=== PATIENT | male | born 1940 | race Caucasian/White ===

== ENCOUNTER 2024-03-13 15:21 | Outpatient (AMB) | payer MEDICARE, SELFPAY ==
--- NOTE | 2024-03-13 15:31 | HO.NEPHOV_ITS ---
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 He has hypertension for a long time and has been on amlodipine and benazepril which has been keeping his blood pressure at goal. He has been taking nonsteroidal anti-inflammatories on a regular basis. He is known to have diastolic dysfunction with mild to moderate aortic stenosis. He has GERD and has been on PPI for a long time. He has osteoarthritis. He has history of bladder cancer and the last diagnostic cystoscopy by Dr. Reed has been negative he also has mild intermittent essential tremor. He has hearing deficits has he gotten older. He denies any microscopic hematuria now. There is no family history of any Alport syndrome. He denies any chest pain, shortness of breath, paroxysmal nocturnal dyspnea, orthopnea, dysuria, fever, suprapubic pain, flank pain, nephrolithiasis, peripheral arterial disease, carotid stenosis, CVA, CAD, CHF. He is active and swims and play golf regularly. His serum creatinine has been around 1.2. He denies any nausea, vomiting, diarrhea. He was accompanied by his during this office visit. [facility] Medical History (Updated 03/14/24 @ 13:10 by Tyrone Gibson MD) Bladder CA in situ Hyperlipidemia GERD (gastroesophageal reflux disease) Spinal stenosis Osteoarthritis JUNG (obstructive sleep apnea) Hypertension Surgical History (Updated 03/08/24 @ 13:52 by Shana Pedraza MA) History of cholecystectomy History of back surgery History of appendectomy History of tonsillectomy H/O colonoscopy History of laminectomy History of total right knee replacement Family History (Updated 03/13/24 @ 15:37 by Shana Pedraza MA) Father Diabetes Heart disease Mother Lung cancer Daughter Cancer Social History (Updated 03/13/24 @ 15:37 by Shana Pedraza MA) Alcohol intake: current Patient Tobacco Use Status: Former Tobacco user Use of substances other than those prescribed or required for medical reasons: No Review of Systems Const All systems reviewed & are unremarkable except as noted in HPI and below Physical Exam Vital Signs: Last Vital Signs Pulse 67 03/13/24 15:32 BP 130/70 03/13/24 15:32 Pulse Ox 95 03/13/24 15:32 Oxygen Delivery Method Room Air 03/13/24 15:32 BMI result Body Mass Index 28.4 Const General: comfortable and no acute distress Orientation/consciousness: patient oriented x3 HEENT Head: Yes normocephalic Mouth: Normal oral and palatal mucosa present Eyes EOM: EOMs intact bilaterally Neck Neck: Yes supple Resp Auscultation: clear to auscultation bilaterally Cardio Jugular venous distension: no JVD Rate: regular rate Heart sounds: Murmur heart sound present GI Palpation (GI): Soft to palpation Auscultation: normal bowel sounds General: Yes no CVA tenderness Back/Spine/Pelvis Back: no CVA tenderness Skin General skin exam: no rashes or lesions noted Neuro General: patient oriented x3 and moves all extremities Extrem General: Yes no pedal edema Results Reviewed Nephrology Results: No Data to Display Assessment & Plan Assessment & Plan (1) Proteinuria: Code(s): R80.9 - Proteinuria, unspecified Category: Medical Qualifiers: Proteinuria type: other Qualified Code(s): R80.8 - Other proteinuria (2) Hypertension: Code(s): I10 - Essential (primary) hypertension Category: Medical Qualifiers: Hypertension type: primary hypertension Qualified Code(s): I10 - Essential (primary) hypertension (3) CKD (chronic kidney disease) stage 2, GFR 60-89 ml/min: Code(s): N18.2 - Chronic kidney disease, stage 2 (mild) Category: Medical Plan Dr Ferris has mild CKD and mild proteinuria on a backdrop of longstanding hypertension. His blood pressure is under control on amlodipine and benazepril. He is known to have bladder cancer which has been closely followed up by Dr. Reed. He has no family history of microscopic hematuria or Alport syndrome. His serum creatinine has been stable. He has not known to have any hypercalcemia. He takes nonsteroidal anti-inflammatories regularly. I asked him not to do it regularly, given his age and being on GHAZALA inhibitor. I ordered a 24 hour urine collection for protein. If he has proteinuria we can discontinue his amlodipine and increase his benazepril which will maintain his blood pressure at goal and help with his proteinuria. If he has significant proteinuria he warrants were investigations which I shall be happy to order and organize. In the interim he wants to follow-up closely with his primary care and will see me as needed basis. I did not make any medication changes today. I answered all his and his 's questions. Orders: Orders Protein, 24 Hr Urine Group 03/13/24 R80.9 - Proteinuria, unspecified Coding Level of Care Code New Pt Level 4 (61399) Diagnoses Other proteinuria R80.8 Proteinuria type: other Primary hypertension I10 Hypertension type: primary hypertension CKD (chronic kidney disease) stage 2, GFR 60-89 ml/min N18.2
[2024-03-13 15:32] VITALS: BP 130/70; PULSE 67; O2SAT 95; BMI 28.4
== END 2024-03-13 16:38 | disposition home or self-care (01) ==
PROVIDERS: PCP Internal Medicine; Visit Provider Internal Medicine Nephrology
DX: R80.8 Other proteinuria (principal); I12.9 Hypertensive chronic kidney disease with stage 1 through stage 4 chronic kidney disease, or unspecified chronic kidney disease; N18.2 Chronic kidney disease, stage 2 (mild)
CPT/HCPCS: 99204

== ENCOUNTER → 2024-03-13 15:21 | Outpatient (BNVA) | payer MEDICARE, SELFPAY | PROVIDERS: PCP Internal Medicine; Visit Provider Internal Medicine Nephrology | DX: R80.9 Proteinuria, unspecified (principal); I12.9 Hypertensive chronic kidney disease with stage 1 through stage 4 chronic kidney disease, or unspecified chronic kidney disease; N18.2 Chronic kidney disease, stage 2 (mild); Z79.899 Other long term (current) drug therapy | CPT/HCPCS: 99202 ==

== ENCOUNTER 2025-03-26 10:44 | Outpatient (AMB) | payer MEDICARE, SELFPAY ==
--- NOTE | 2025-03-26 11:30 | HO.NEPHOV_ITS ---
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 He has hypertension for a long time and has been on amlodipine and benazepril which has been keeping his blood pressure at goal. He has been taking nonsteroidal anti-inflammatories on a regular basis which he discontinued recently after his serum creatinine has gone up. He is known to have diastolic dysfunction with mild to moderate aortic stenosis. He has GERD and has been on PPI for a long time. He has osteoarthritis. He has history of bladder cancer and the last diagnostic cystoscopy by Dr. Reed has been negative he also has mild intermittent essential tremor. He has hearing deficits has he gotten older. He denies any microscopic hematuria now. There is no family history of any Alport syndrome. He denies any chest pain, shortness of breath, paroxysmal nocturnal dyspnea, orthopnea, dysuria, fever, suprapubic pain, flank pain, nephrolithiasis, peripheral arterial disease, carotid stenosis, CVA, CAD, CHF. He is active and swims and play golf regularly. His serum creatinine had been around 1.2 which has gone up to 1.35. He denies any nausea, vomiting, diarrhea. He was accompanied by his during this office visit. [facility] Medical History (Updated 03/14/24 @ 13:10 by Tyrone Gibson MD) Bladder CA in situ Hyperlipidemia GERD (gastroesophageal reflux disease) Spinal stenosis Osteoarthritis JUNG (obstructive sleep apnea) Hypertension Surgical History History of cholecystectomy History of back surgery History of appendectomy History of tonsillectomy H/O colonoscopy History of laminectomy History of total right knee replacement Family History Father Diabetes Heart disease Mother Lung cancer Daughter Cancer Social History (Reviewed 03/26/25 @ 11:33 by ELEANOR Chin Alcohol intake: current Patient Tobacco Use Status: Former Tobacco user Review of Systems Const All systems reviewed & are unremarkable except as noted in HPI and below Physical Exam Vital Signs: Last Vital Signs BP 102/62 03/26/25 11:31 Pulse Ox 98 03/26/25 11:31 Oxygen Delivery Method Room Air 03/26/25 11:31 BMI result Body Mass Index 27.4 Const Other: Hearing aid present General: comfortable and no acute distress Orientation/consciousness: patient oriented x3 HEENT Head: Yes normocephalic Mouth: Normal oral and palatal mucosa present Eyes EOM: EOMs intact bilaterally Neck Neck: Yes supple Resp Auscultation: clear to auscultation bilaterally Cardio Jugular venous distension: no JVD Rate: regular rate GI Palpation (GI): Soft to palpation Auscultation: normal bowel sounds General: Yes no CVA tenderness Back/Spine/Pelvis Back: no CVA tenderness Skin General skin exam: no rashes or lesions noted Neuro General: patient oriented x3 and moves all extremities Extrem General: Yes no pedal edema Results Reviewed Nephrology Results: No Data to Display Assessment & Plan Assessment & Plan (1) CKD (chronic kidney disease) stage 2, GFR 60-89 ml/min: Code(s): N18.2 - Chronic kidney disease, stage 2 (mild) Category: Medical (2) Hypertension: Code(s): I10 - Essential (primary) hypertension Category: Medical Qualifiers: Hypertension type: primary hypertension Qualified Code(s): I10 - Essential (primary) hypertension (3) Proteinuria: Code(s): R80.9 - Proteinuria, unspecified Category: Medical Qualifiers: Proteinuria type: other Qualified Code(s): R80.8 - Other proteinuria Plan Dr Ferris has mild CKD and mild proteinuria on a backdrop of longstanding hypertension. His blood pressure is under control on amlodipine and benazepril. He is known to have bladder cancer which has been closely followed up by Dr. Reed. He has no family history of microscopic hematuria or Alport syndrome. His serum creatinine has gone up and he has stopped his NSAID. He has not known to have any hypercalcemia. I ordered follow up labs in 2 months and when he returns from [place]. If hsi serum creatnine does not settle down , he will need a renal USS. I did not make any medication changes today. I answered all his and his 's questions. Orders: Orders Creatinine 8 Months I10 - Essential (primary) hypertension, N18.2 - Chronic kidney disease, stage 2 (mild), R80.8 - Other proteinuria Creatinine 2 Months I10 - Essential (primary) hypertension, N18.2 - Chronic kidney disease, stage 2 (mild) Blood Urea Nitrogen 2 Months I10 - Essential (primary) hypertension, N18.2 - Chronic kidney disease, stage 2 (mild) Electrolytes 2 Months I10 - Essential (primary) hypertension, N18.2 - Chronic kidney disease, stage 2 (mild) Electrolytes 8 Months I10 - Essential (primary) hypertension, N18.2 - Chronic kidney disease, stage 2 (mild), R80.8 - Other proteinuria Blood Urea Nitrogen 8 Months I10 - Essential (primary) hypertension, N18.2 - Chronic kidney disease, stage 2 (mild), R80.8 - Other proteinuria Coding Level of Care Code Est Pt Level 4 (49779) Diagnoses CKD (chronic kidney disease) stage 2, GFR 60-89 ml/min N18.2 Primary hypertension I10 Hypertension type: primary hypertension Other proteinuria R80.8 Proteinuria type: other
[2025-03-26 11:31] VITALS: BP 102/62; O2SAT 98; BMI 27.4
--- OUTSIDE RECORDS SUMMARY | 2025-03-26 12:13 | XMS_ITS | Data Portability ---
Author Organization [place] [facility] [address] [place] [address] Care Team Providers Care Travel Freight And Passenger Agent Name Role Phone RUDY LLAMAS Internal Medicine ALVARADO BOUCHER Primary Care Provider ALEXIA HARP Store Operations Specialist [phone] ENE RICKS Store Operations Specialist Assessment No assessment recorded. Plan of Treatment Reminders Order Date Submit Date Provider Last Modified By Organization Details Last Modified Time Details Appointments None record ed. Lab rapid flu (A+B) 2023 024 SUE In-Office Order, Internal Use Only DO Not Attach Compendium DO Not Attach Compendium, Do Not Delete/merge, [id number] 13:58:50 unlist ed lab - derm-i d compre hensiv e 2022 [facility], [address] [facility], [facility] [address], [place], [address], 3 16:12:02 Referral gastro entero logist referr al 2022 023 SUE Og MD ([facility]), [address] [facility], [facility] [address], [address], 3 09:20:17 Procedures None record ed. Surgeries None record ed. Imaging XR, chest - decrea sed vesicu lar murmur in right bse wuith possib le increa se fremit us 01/31/ 2024 01/31/2 024 yblancosantos DO Not Use [facility] Radiology DO Not Use, [address], [place], [address], 4 07:50:59 Medication Orders Tamifl u 75 mg capsul e 2023 024 SUE [id number], [address], [place], [address], 4 16:51:43 amoxic illin 875 mg-pot assium clavul anate 125 mg tablet 2022 023 [id number], [address], [place], [address], 4 15:44:08 hydroc ortiso ne 2.5 % topica l cream with perine al applic ator 2022 023 [id number], [address], [place], [address], 4 15:44:30 Patient TargetsNo targets recorded. Patient Instructions Encounter Date Encounter Id Patient Instructions Last Modified By Organization Details Last Modified Time 12/17/2021 [id number] sleep apnea: car e instructions [email or web address] Not available 12/17/2021 10:34:50 high blood pressure: care instructions mjimenezrodrigue Not available 12/17/2021 10:34:50 learning about high blood pressure mjimenezrodrigue Not available 12/17/2021 10:34:50 lightheadedness or faintness: care instructions mjimenezrodrigue Not available 12/17/2021 10:34:50 high cholesterol : care instructions mjimenezrodrigue Not available 12/17/2021 10:34:50 benign prostatic hyperplasia: care instructions mjimenezrodrigue Not available 12/17/2021 10:34:50 11/09/2023 [id number] upper respirator y infection (cold): care instructions mjimenezrodrigue Not available 11/09/2023 16:43:56 high blood pressure: care instructions mjimenezrodrigue Not available 11/09/2023 16:43:56 learning about high blood pressure mjimenezrodrigue Not available 11/09/2023 16:43:56 high cholesterol : care instructions mjimenezrodrigue Not available 11/09/2023 16:43:56 benign prostatic hyperplasia: care instructions mjimenezrodrigue Not available 11/09/2023 16:43:56 Reason for Referral Store Operations Specialist Referral for Hemorrhoids Referring Physician: Alvarado Boucher, Family Medicine, Encounter Date: 11/05/2022 Results Created Date Observation Date Name Description Value Unit Range Abnormal Flag Note LastModifiedBy Organization Detail LastModifiedTime 11/10/19 24 11/10/2023 rapid flu (A+B) V Block Saw Operator GIOVANA FLORES Not Available In-Office Order Internal Use Only DO Not Attach Compendium DO Not Attach Compendium, Do Not Delete/merge, [id number] 11/09/2023 16:41:20 11/10/19 24 11/10/2023 rapid flu (A+B) Test Strip Lot Number [id number] Not Available In-Office Order Internal Use Only DO Not Attach Compendium DO Not Attach Compendium, Do Not Delete/merge, [id number] 11/09/2023 16:41:20 11/10/19 24 11/10/2023 rapid flu (A+B) Test Strip Expiration Date 2024 Not Available In-Office Order Internal Use Only DO Not Attach Compendium DO Not Attach Compendium, Do Not Delete/merge, [id number] 11/09/2023 16:41:20 11/10/19 24 11/10/2023 rapid flu (A+B) Procedural Control Valid yes Not Available In-Off ice Order Internal Use Only DO Not Attach Compendium DO Not Attach Compendium, Do Not Delete/merge, [id number] 11/09/2023 16:41:20 11/10/19 24 11/10/2023 rapid flu (A+B) Flu A positi ve Not Available In-Office Order Internal Use Only DO Not Attach Compendium DO Not Attach Compendium, Do Not Delete/merge, [id number] 11/09/2023 16:41:20 11/10/19 24 11/10/2023 rapid flu (A+B) Flu B negati ve Not Available In-Office Order Internal Use Only DO Not Attach Compendium DO Not Attach Compendium, Do Not Delete/merge, [id number] 11/09/2023 16:41:20 Result Notes None recorded. Problems Name Problem SNOMED Code Status Onset Date Resolution Date Notes Provider Name and Address Organization Details Recorded Time Near syncope 279171839 Active 2021 RUDY NAVARRO MD [address] [place] [address], [address] , [facility] [place] 2 10:34:29 Cardiac arrhythmia 639678174 Active 2021 RUDY NAVARRO MD [address] [place] [address], [address] , [facility]14 [place] 2 10:34:30 Obstructive sleep apnea syndrome 85736019 Active 2021 RUDY NAVARRO MD [address] [place] [address], [address] , [facility]14 [place] 2 10:34:31 Essential hypertension 95931535 Active 2021 RUDY NAVARRO MD [address] [place] [address], [address] , [facility]14 [place] 2 10:34:33 Hyperlipidemi a 34758298 Active 2021 RUDY NAVARRO MD [address] [place] [address], [address] , [facility]14 [place] 2 10:34:34 History of malignant neoplasm of bladder 486060210 Active 2021 RUDY NAVARRO MD [address] [place] [address], [address] , [facility] [place] 2 10:34:35 History of malignant neoplasm of skin 513564404 Active 2021 RUDY NAVARRO MD [address] [place] [address], [address] , [address] 2 10:34:35 Benign prostatic hyperplasia 622778777 Active 2021 RUDY NAVARRO MD [address] [place] [address], [address] [place] [address] , [address] 2 10:34:36 Screening for malignant neoplasm of colon Active 2021 Not Available [facility] 3 09:49:04 Upper respiratory infection 49773093 Active 2023 RUDY NAVARRO MD [address] [place] [address], [address] , [address] 4 16:40:55 Influenza caused by Influenza A virus 849892556 Active 2023 RUDY NAVARRO MD [address] [place] [address], [address] , [address] 4 16:51:21 Notes:Some problems listed i n Document: #[id number] could not be added to this patient's chart. Please review this document and add these problems to the patient's chart manually as needed. Problem Notes Documentation Provider Name and Address Organization Details Recorded Time Store Operations Specialist Consult Note : [facility] [facility] ? [address], [facility] [id number], Carl (id #[id number], : 1940) [facility] ? [place] [address] [place] [address] Encounter Summary - Progress Note Date Printed: 11/09/2022 Documents sent via fax will include the followingmessage: This fax may contain sensitive and confidential personal health information that is being sent for the sole use of the intended recipient. Unintended recipients are directed to securely destroy any materials received. You are hereby notified that the unauthorized disclosure or other unlawful use of this fax or any personal health information is prohibited. To the extent patient information contained in this fax is subject to 42 CFR Part 2, this regulation prohibits unauthorized disclosure of these records. If you received this fax in error, please visit [email or web address] to notify the sender and confirm that the information will be destroyed. If you do not have internet access, please call to notify the sender and confirm that the information will be destroyed. Thank you for your attention and cooperation. [ID:[id number]] Patient Barrington, (82yo, M) #[id number] 1940 Patient Demographics: Address [address] [id number] Encounter Notes: Encounter Reason/Date Hemorrhoid Banding - Visit 1 11/09/2022 - 09:15AM - [facility] History of Present IllnessPatient presents for first hemorrhoid banding. Review of Systems Patient reports no abdominal pain, no vomiting, normal appetite, no diarrhea, not vomiting blood, no malaise, no exposure to hepatitis, no blood transfusion, and no weight gain;1st hemorrhoid banding today.. He reports no fever, no night sweats, no significant weight gain, no significant weight loss, and no exercise intolerance. He reports no dry eyes, no irritation, and no vision change. He reports no difficulty hearing and no ear pain. He reports no frequent nosebleeds and no nose/sinus problems. He reports no sore throat, no bleeding gums, no snoring, no dry mouth, no mouth ulcers, no oral abnormalities, and no teeth problems. He reports no chest pain, no arm pain on exertion, no shortness of breath when walking, no shortness of breath when lying down, no palpitations, and no known heart murmur. He reports no cough, no wheezing, no shortness of breath, and no coughing up blood. He reports no enemas, no laxatives, no change in stool consistency, and no bloating. He reports no blood, no mucous, no pain/cramps, no antibiotics, no urgency, and no travel. He reports no belching, none per rectum, and relief with passage. He reports no itching, no burning, and no suppositories. He reports none on toilet tissue, does not discolor water in toilet, and not associated with rectal pain. He reports no incontinence. He reports no change in bowel habits. He reports no incontinence, no difficulty urinating, no hematuria, and no increased frequency. He reports no muscle aches, no muscle weakness, no arthralgias/joint pain, no back pain, and no swelling in the extremities. He reports no abnormal mole, no jaundice, and no rashes. He reports no loss of consciousness, no weakness, no numbness, no seizures, no dizziness, and no headaches. He reports no depression, no sleep disturbances, feeling safe in relationship, and no alcohol abuse. He reports no fatigue. He reports no swollen glands, no bruising, no easy bruising, no blood clot, and no excessive bleeding. He reports no runny nose, no sinus pressure, no itching, no hives, and no frequent sneezing. He reports no solids only, no solids or liquids, no increase in frequency, no pain on swallow, and no vomit induced. He reports does not awaken, does not worsen lying down, and no associated coughing or wheezing. He reports none and not worse with foods. He reports not exertional, not associated with eating, and no shortness of breath. He reports not worse with meals, not related to activity, and not radiating. He reports none. He reports none. He reports no blood present. He reports normal hunger and normal satiety. Additionally reports:ROS performed by Dayanna Lopez LPN, I, Ene Ricks PA-C have personally reviewed and agree to the findings below. Vitals Wt: 189 lbs With clothes (85.73 kg)11/09/2022 09:08 am BP: Not Performed - Not szkrzetpj81/31/2023 09:08 am Pulse: 63 bpm zghjuti9111/09/2022 09:08 am RR: 1601 09:08 am O2Sat: 97% Room Air at Rest11/09/2022 09:09 am Ht: 5 ft 10 in Standing (177.8 cm)11/09/2022 09:09 am BMI: 27.101 09:09 am Pain Scale: 09:09 am Pain Scale Type: Bysavfx0111/09/2022 09:09 am ProcedureHemorrhoid Banding Procedure Template:Informed consent was obtained from the patient. The rationale, risks, and alternatives were reviewed with the patient in advance of the procedure. Next the patient was placed in the left lateral decubitus position. Digital rectal exam was performed and revealed no masses. Next the O? R theresa band ligation apparatus was introduced per rectum, and the left lateral column of hemorrhoids was band ligated. Repeat digital rectal exam was performed and the band ligator was noted to be in good position. The patient tolerated the procedure well. There were no immediate complications. The patient was advised to call immediately if any problems following the procedure, including-but not limited to-pain, fever, or bleeding. Results/InterpretationsNone recorded Physical ExamRectal exam: internal hemorrhoids Assessment and Plan1. Internal hemorrhoids-Informed consent was obtained from the patient. The rationale, risks, and alternatives were reviewed with the patient in advance of the procedure. Next the patient was placed in the left lateral decubitus position. Digital rectal exam was performed and revealed no masses. Next the O? R theresa band ligation apparatus was introduced per rectum, and the left lateral column of hemorrhoids was band ligated. Repeat digital rectal exam was performed and the band ligator was noted to be in good position. The patient tolerated the procedure well. There were no immediate complications. The patient was advised to call immediately if any problems following the procedure, including-but not limited to-pain, fever, or bleeding.K64.8: Other hemorrhoids Return to Office Patient will return to the office as needed Patient Medical History: Allergies List Reviewed Allergies NKDA Medications Reviewed Medications NameDate Source amLODIPine 2.5 mg-benazepriL 10 mg capsuleTAKE 1 CAPSULE BY MOUTH EVERY DAY10/29/21 filled surescripts pravastatin 20 mg tabletTAKE 1 TABLET BY MOUTH EVERY DAY10/29/21 filled surescripts Proctosol HC 2.5 % topical cream perineal applicatorAPPLY A THIN LAYER TO THE AFFECTED AREA(S) BY TOPICAL ROUTE 2-4 TIMES DAILY11/05/22 filled surescripts Family HistoryReviewed Family History Past Medical HistoryReviewed Past Medical History Vaccine HistoryReviewed Vaccines Vaccine Type Date Amt. Route Site [facility] Lot # Mfr. Exp. Date VIS VIS Given Marble Cutter Operator COVID-19 COVID-19, mRNA, LNP-S, PF, 100 mcg/0.5 mL dose (Moderna) 12/28/21 Intramuscular [id number] Moderna [employer], Inc. COVID-19, mRNA, LNP-S, PF, 100 mcg/0.5 mL dose (Moderna) 12/01/20 Intramuscular [id number] Modern[employer] COVID-19, mRNA, LNP-S, PF, 100 mcg/0.5 mL dose (Moderna) 11/03/20 Intramuscular [id number] Modern[employer] Influenza influenza, trivalent, adjuvanted 06/07/19 Intramuscular [id number] Seqirus Zoster zoster recombinant 10/19/22 Intramuscular [id number] Graitecine Electronically Signed by: MALDONADO GOODWIN, EDE ALVARADO BOUCHER APRN [address] [place], [address], [address] 11/09/2022 11:37:32 Store Operations Specialist Consult Note : [facility] ? [address], [facility] [id number], Carl (id #[id number], : 1940) [facility] ? [place] [address] [place] [address] [address] [place] [address] Encounter Summary - Progress Note Date Printed: 11/23/2022 Documents sent via fax will include the followingmessage: This fax may contain sensitive and confidential personal health information that is being sent for the sole use of the intended recipient. Unintended recipients are directed to securely destroy any materials received. You are hereby notified that the unauthorized disclosure or other unlawful use of this fax or any personal health information is prohibited. To the extent patient information contained in this fax is subject to 42 CFR Part 2, this regulation prohibits unauthorized disclosure of these records. If you received this fax in error, please visit [email or web address] to notify the sender and confirm that the information will be destroyed. If you do not have internet access, please call to notify the sender and confirm that the information will be destroyed. Thank you for your attention and cooperation. [ID:[id number]] Patient Barrington, (82yo, M) #[id number] 1940 Patient Demographics: Address [address] [place], [place] [id number] Encounter Notes: Encounter Reason/Date Hemorrhoid Banding - Visit 2 11/23/2022 - 01:30PM - [facility] History of Present IllnessPatient presents for second hemorrhoid banding. Review of Systems Patient reports no abdominal pain, no vomiting, normal appetite, no diarrhea, not vomiting blood, no malaise, no exposure to hepatitis, no blood transfusion, and no weight gain;2nd Banding today- consent signed. He reports no fever, no night sweats, no significant weight gain, no significant weight loss, and no exercise intolerance. He reports no dry eyes, no irritation, and no vision change. He reports no difficulty hearing and no ear pain. He reports no frequent nosebleeds and no nose/sinus problems. He reports no sore throat, no bleeding gums, no snoring, no dry mouth, no mouth ulcers, no oral abnormalities, and no teeth problems. He reports no chest pain, no arm pain on exertion, no shortness of breath when walking, no shortness of breath when lying down, no palpitations, and no known heart murmur. He reports no cough, no wheezing, no shortness of breath, and no coughing up blood. He reports no enemas, no laxatives, no change in stool consistency, and no bloating. He reports no blood, no mucous, no pain/cramps, no antibiotics, no urgency, and no travel. He reports no belching, none per rectum, and relief with passage. He reports no itching, no burning, and no suppositories. He reports none on toilet tissue, does not discolor water in toilet, and not associated with rectal pain. He reports no incontinence. He reports no change in bowel habits. He reports no incontinence, no difficulty urinating, no hematuria, and no increased frequency. He reports no muscle aches, no muscle weakness, no arthralgias/joint pain, no back pain, and no swelling in the extremities. He reports no abnormal mole, no jaundice, and no rashes. He reports no loss of consciousness, no weakness, no numbness, no seizures, no dizziness, and no headaches. He reports no depression, no sleep disturbances, feeling safe in relationship, and no alcohol abuse. He reports no fatigue. He reports no swollen glands, no bruising, no easy bruising, no blood clot, and no excessive bleeding. He reports no runny nose, no sinus pressure, no itching, no hives, and no frequent sneezing. He reports no solids only, no solids or liquids, no increase in frequency, no pain on swallow, and no vomit induced. He reports does not awaken, does not worsen lying down, and no associated coughing or wheezing. He reports none and not worse with foods. He reports not exertional, not associated with eating, and no shortness of breath. He reports not worse with meals, not related to activity, and not radiating. He reports none. He reports none. He reports no blood present. He reports normal hunger and normal satiety. Additionally reports:ROS performed by Dayanna Lopez LPN I, Ene Ricks PA-C have personally reviewed and agree to the findings below. Vitals Wt: 189 lbs With clothes (85.73 kg)11/23/2022 01:15 pm BP: Not Performed - Not snflfzxge10/14/2023 01:24 pm Pulse: 64 bpm gsubebj7011/23/2022 01:15 pm RR: 1602 01:15 pm O2Sat: 99% Room Air at Rest11/23/2022 01:15 pm Ht: 5 ft 10 in Standing (177.8 cm)11/23/2022 01:14 pm BMI: 27. 01:15 pm Pain Scale: 01:15 pm Pain Scale Type: Cwizqau1711/23/2022 01:15 pm ProcedureHemorrhoid Banding Procedure Template:Informed consent was obtained from the patient. The rationale, risks, and alternatives were reviewed with the patient in advance of the procedure. Next the patient was placed in the left lateral decubitus position. Digital rectal exam was performed and revealed no masses. Next the O? R theresa band ligation apparatus was introduced per rectum, and the right posterior and right anterior column of hemorrhoids was band ligated. Repeat digital rectal exam was performed and the band ligator was noted to be in good position. The patient tolerated the procedure well. There were no immediate complications. The patient was advised to call immediately if any problems following the procedure, including-but not limited to-pain, fever, or bleeding. Results/InterpretationsNone recorded Physical ExamRectal exam: internal hemorrhoids Assessment and Plan1. Internal hemorrhoids-Informed consent was obtained from the patient. The rationale, risks, and alternatives were reviewed with the patient in advance of the procedure. Next the patient was placed in the left lateral decubitus position. Digital rectal exam was performed and revealed no masses. Next the O? R theresa band ligation apparatus was introduced per rectum, and the right posterior and right anterior column of hemorrhoids was band ligated. Repeat digital rectal exam was performed and the band ligator was noted to be in good position. The patient tolerated the procedure well. There were no immediate complications. The patient was advised to call immediately if any problems following the procedure, including-but not limited to-pain, fever, or bleeding.K64.8: Other hemorrhoids 2. Perianal dermatitis-culture showed strep. He will complete zrseceqykX76.9: Dermatitis, unspecified amoxicillin 875 mg-potassium clavulanate 125 mg tablet - Take 1 tablet every 12 hours Qty: (14) tablet Refills: 0 Pharmacy: [facility][id number] Return to Office MALDONADO GOODWIN for HEMORRHOID BANDING at [facility] on 12/07/2022 at 09:00 AM Patient Medical History: Allergies List Reviewed Allergies NKDA Medications Reviewed Medications NameDate Source amLODIPine 2.5 mg-benazepriL 10 mg capsuleTAKE 1 CAPSULE BY MOUTH EVERY DAY10/29/21 filled surescripts amoxicillin 875 mg-potassium clavulanate 125 mg tabletTake 1 tablet every 12 hours11/23/22 prescribed MALDONADO GOODWIN pravastatin 20 mg tabletTAKE 1 TABLET BY MOUTH EVERY DAY10/29/21 filled surescripts Proctosol HC 2.5 % topical cream perineal applicatorAPPLY A THIN LAYER TO THE AFFECTED AREA(S) BY TOPICAL ROUTE 2-4 TIMES DAILY11/05/22 filled surescripts Family HistoryReviewed Family History Past Medical HistoryReviewed Past Medical History Colonoscopy:Y Vaccine HistoryReviewed Vaccines Vaccine Type Date Amt. Route Site [facility] Lot # Mfr. Exp. Date VIS VIS Given Marble Cutter Operator COVID-19 COVID-19, mRNA, LNP-S, PF, 100 mcg/0.5 mL dose (Moderna) 12/28/21 Intramuscular [id number] Moderna [employer] Inc. COVID-19, mRNA, LNP-S, PF, 100 mcg/0.5 mL dose (Moderna) 12/01/20 Intramuscular [id number] [employer] COVID-19, mRNA, LNP-S, PF, 100 mcg/0.5 mL dose (Moderna) 11/03/20 Intramuscular [id number] Modern[employer] Influenza influenza, trivalent, adjuvanted 06/07/19 Intramuscular [id number] Seqirus Zoster zoster recombinant 10/19/22 Intramuscular [id number] Graitecine Electronically Signed by: MALDONADO GOODWIN PASUP [address] 11/23/2022 13:51:06 Procedures Surgical History Date Name Laterality Status Provider Name and Address Organization Details Recorded Time 3 Hemorrhoid Banding Procedure Template completed MALDONADO GOODWIN [address] [place] [address], [phone], [address] 11/23/2022 13:24:39 3 Hemorrhoid Banding Procedure Template completed MALDONADO GOODWIN [address] [place] [address], [address], [address] 11/09/2022 09:12:28 Imaging Results None recorded. Procedure Notes None recorded. Medical Equipment None Reported. Allergies No known drug allergies Medications Name Sig Start Date Stop Date Status Note LastModified by Organization Details LastModified Time azithromyci n 250 mg tablet TAKE 2 TABLETS BY MOUTH TODAY, THEN TAKE 1 TABLET DAILY FOR 4 DAYS DIRECTED active Not Available Not Available No t Available amlodipine 2.5 mg-benazepr il 10 mg capsule TAKE 1 CAPSULE BY MOUTH EVERY DAY 11/09 completed Not Available Not Available Not Available ciprofloxac in 500 mg tablet TAKE 1 TABLET BY MOUTH TWICE A DAY 11/09 completed Not Available Not Available Not Available ondansetron 8 mg disintegrat ing tablet TAKE 1 TABLET BY MOUTH EVERY 8 HOURS NEEDED FOR NAUSEA AND VOMITING 11/09 completed Not Available Not Available Not Available prednisolon e acetate 1 % eye drops,suspe nsion INSTILL 1 DROP INTO RIGHT EYE 3 TIMES A DAY FOLLOWING LASER 12/17 completed Not Available Not Available Not Available amlodipine 5 mg-benazepr il 10 mg capsule TAKE 1 CAPSULE BY MOUTH EVERY DAY ORALLY ONCE DAILY 90 DAYS active Not Available Not Available No t Available oseltamivir 75 mg capsule TAKE 1 CAPSULE BY MOUTH TWICE A DAY FOR 5 DAYS active Not Available Not Available No t Available pravastatin 20 mg tablet TAKE 1 TABLET BY MOUTH EVERY DAY FOR 90 DAYS active Not Available Not Available No t Available zolpidem 5 mg tablet TAKE 1 TABLET BY MOUTH AT BEDTIME 11/09 completed Not Available Not Available Not Available amoxicillin 875 mg-potassiu m clavulanate 125 mg tablet TAKE 1 TABLET BY MOUTH TWICE A DAY 11/09 completed Not Available Not Available Not Available Proctosol HC 2.5 % topical cream perineal applicator APPLY A THIN LAYER TO THE AFFECTED AREA(S) BY TOPICAL ROUTE 2-4 TIMES DAILY 11/09 completed Not Available Not Available Not Available Paxlovid 300 mg (150 mg x 2)-100 mg tablets in a dose pack TAKE 3 TABLETS BY MOUTH TWICE A DAY FOR 5 DAYS 11/09 completed Not Available Not Available Not Available Vitals Date Recorded Body height Body mass index (BMI) Body weight Body temperature Heart rate Oxygen saturation Oxygen saturation in Arterial blood by Pulse oximetry Systolic blood pressure Diastolic blood pressure Provider Name and Address Organization Details Last Updated DateTime 3 171.45 cm 29.8 kg/m2 72404.3 3 g 97.9 [degF] 60 /min 98 % 98 % 133 mm[Hg] 77 mm[Hg] Charlotte Das [address] 3 09:33:54 Date Recorded Body height Body mass index (BMI) Body weight Heart rate Respiratory rate Oxygen saturation Oxygen saturation in Arterial blood by Pulse oximetry Provider Name and Address Organization Details Last Updated DateTime 3 177.8 cm 27.1 kg/m2 57252.9 6 g 63 /min 16 /min 97 % 97 % Dayanna Lopez [address] 3 09:09:00 Date Recorded Body height Body mass index (BMI) Body weight Body temperature Heart rate Oxygen saturation Oxygen saturation in Arterial blood by Pulse oximetry Respiratory rate Systolic blood pressure Diastolic blood pressure Provider Name and Address Organization Details Last Updated DateTime 4 177.8 cm 27.1 kg/m2 89358.9 6 g 97.3 [degF] 68 /min 98 % 98 % 18 /min 132 mm[Hg] 82 mm[Hg] Rex boyd [address] 4 15:43:29 Date Recorded Body height Body mass index (BMI) Body weight Respiratory rate Heart rate Oxygen saturation Oxygen saturation in Arterial blood by Pulse oximetry Provider Name and Address Organization Details Last Updated DateTime 3 177.8 cm 27.1 kg/m2 83941.9 6 g 16 /min 64 /min 99 % 99 % Dayanna Lopez [address] 3 13:15:19 Date Recorded Body weight Body mass index (BMI) Body height Body temperature Heart rate Respiratory rate Oxygen saturation Oxygen saturation in Arterial blood by Pulse oximetry Systolic blood pressure Diastolic blood pressure Provider Name and Address Organization Details Last Updated DateTime 2 62640.6 3 g 27.8 kg/m2 171.45 cm 97.3 [degF] 57 /min 14 /min 97 % 97 % 118 mm[Hg] 68 mm[Hg] Tiffany Blank CMA [address] 2 09:54:11 Social History Question Answer Notes LastModified by Organizat ion Details LastModified Time Tobacco Smoking Status Former Smoker Tiffany Blank CMA [address] 12/17/2021 09:55:36 Do You Have An Advance Directive? Yes Information not available 12/17/2021 Do You Wear A Helmet When Biking? Yes Information not available 12/17/2021 Are You Blind Or Do You Have Difficulty Seeing? No Information not available 12/17/2021 What Is Your Level Of Caffeine Consumption? Occasional Information not available 12/17/2021 Are You Deaf Or Do You Have Serious Difficulty Hearing? No Information not available 12/17/2021 What Type Of Diet Are You Following? REGULAR Information not available 12/17/2021 How Many Times Per Week Do You Exercise? 3-4 Times Per Week Information not available 12/17/2021 When Did You Quit Smoking? 16+yearsdeysi hardwick Information not available 12/17/2021 Do You Have A Medical Power Of Slime Plant Operator? No Information not available 12/17/2021 What Was The Date Of Your Most Recent Tobacco Screening? 11/09/2023 [email or web address] Information not available 11/09/2023 What Is Your Current Pack Years? 10packyears olupulescu Information not available 11/09/2022 Do You Use Your Seat Belt Or Car Seat Routinely? Yes Information not available 12/17/2021 Do You Have Smoke And Carbon Monoxide Detectors In Your Home? Yes Information not available 12/17/2021 Are You Passively Exposed To Smoke? No Information not available 12/17/2021 Do You Use Sunscreen Routinely? Yes Information not available 12/17/2021 Has Tobacco Cessation Counseling Been Provided? Yes Information not available 12/17/2021 Do You Have Difficulty Walking Or Climbing Stairs? No Information not available 12/17/2021 Sex: Unknown Functional Status Question Answer Note LastModified by Organizat ion Details LastModified Time Do you use any illicit or recreational drugs? No Information not available 12/17/2021 Do you or have you ever used any other forms of tobacco or nicotine? No Information not available 12/17/2021 What is your level of alcohol consumption? 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 No Information not available 12/17/2021 Are you able to care for yourself? Yes Information not available 12/17/2021 Do you have difficulty dressing or bathing? No Information not available 12/17/2021 What is your exercise level? Moderate Information not available 12/17/2021 Mental Status Question Answer Note LastModified by Organization D etails LastModified Time Do you have difficulty concentrating, remembering or making decisions? No Information no t available 12/17/2021 Family History Nothing Reported. Medical History Condition Response Colonoscopy Y Immunizations Vaccine Type Date Status Note Provider Nam e and Address Organization Details Recorded Time Influenza, adjuvanted, trivalent, PF 06/07/2019 completed Dayanna Lupulescu, ANIMAL HOSPITAL OFFICE SUPERVISOR null, [place] - [facility] [place] 11/09/2022 09:09:39 zoster recombinant 10/19/2022 completed Dayanna Lupulescu, ANIMAL HOSPITAL OFFICE SUPERVISOR null, [place] - [facility] [place] 11/09/2022 09:09:39 COVID-19, mRNA, LNP-S, PF, 100 mcg/0.5mL dose or 50 mcg/0.25mL dose 11/03/2020 completed Dayanna Lupulescu, ANIMAL HOSPITAL OFFICE SUPERVISOR null, [place] - [facility] [place] 11/09/2022 09:09:39 COVID-19, mRNA, LNP-S, PF, 100 mcg/0.5mL dose or 50 mcg/0.25mL dose 12/01/2020 completed Dayanna Lupulescu, ANIMAL HOSPITAL OFFICE SUPERVISOR null, [place] - [facility] [place] 11/09/2022 09:09:39 COVID-19, mRNA, LNP-S, PF, 100 mcg/0.5mL dose or 50 mcg/0.25mL dose 12/28/2021 completed Dayanna Lupulescu, ANIMAL HOSPITAL OFFICE SUPERVISOR null, [place] - [facility] [place] 11/09/2022 09:09:39 Past Encounters Encounter ID Performer Location Encounter Start Date Encounter Closed Date Diagnosis/Indication Diagnosis SNOMED-CT Code Diagnosis ICD10 Code Diagnosis Note [id number] RUDY NAVARRO MD [facility] P[facility] [address] [facility] [place] [place] [address] 12/17/2021 09:36:03 12/17/2021 10:27:09 Near syncope [id number] R55 No relpases, This near syncope episode was due to arrhythmia , records requested Cardiac arrhythmia 29082 7007 I49.9 N[facility] E[facility]ada [facility] week Obstructiv e sleep apnea syndrome 79980238 G47.33 Diagnosed more than 10 years ago he is advised to seePatient is using CPAP sleep medicine he would prefer to wait until he returned to normal Essential hypertension 37647033 I10 Stable Hyperlipidemia 18623153 E78.5 On pravastati n LDL according to recent blood work from [facility] around 90 the patient would prefer to wait on the until seen by his primary care physician in order to decide about increase of the dose of pravastati n, Patient recommende d a target of 70 History of malignant neoplasm of bladder 998761547 Z85.51 And North[place] wed by urologist every year with cystoscopy In February cancer detected in 2018 History of malignant neoplasm of skin 582404943 Z85.828 Seen by dermatolog ist twice a year and [place] [facility] for malignant neoplasm of colon 921944825 Z12.11 No oldPatient mention colonoscop y 2 years ago he mentioned that he will need probably another one next year Benign pro static hyperplasia 683303786 N40.0 After patient PSAs and North by his primary care physician he would prefer to do it there [id number] ALVARADO BOUCHER APRN [facility] PCP [address] [facility] [place] [address] 11/05/2022 09:14:50 11/05/2022 09:57:24 Hemorrhoids 60156922 K64.9 refer to GI for banding. will start hydrocorti sone topical cream. risks and side/adver se effects of medication discussed Perineal irritation 3731 50696 L29.3 will obtain derm-id for further work up Localized eruption of skin 925835732 R21 [id number] KATIUSKA OG MD COL_PR [address] [address] [place] [address] 11/09/2022 08:47:43 11/09/2022 11:38:47 Internal hemorrhoids 23770659 K64.8 Informed consent was obtained from the patient. The rationale, risks, and alternativ es were reviewed with the patient in advance of the procedure. Next the patient was placed in the left lateral decubitus position. Digital rectal exam was performed and revealed no masses. Next the O? R theresa band ligation apparatus was introduced per rectum, and the left lateral column of hemorrhoid s was band ligated. Repeat digital rectal exam was performed and the band ligator was noted to be in good position. The patient tolerated the procedure well. There were no immediate complicati ons. The patient was advised to call immediatel y if any problems following the procedure, including- but not limited to-pain, fever, or bleeding. [id number] KATIUSKA OG MD COL_PR 300 [facility] [address] [place] [address]. [address] [place] [address] 11/23/2022 13:06:18 11/23/2022 15:39:05 Internal hemorrhoids 42207404 K64.8 Informed consent was obtained from the patient. The rationale, risks, and alternativ es were reviewed with the patient in advance of the procedure. Next the patient was placed in the left lateral decubitus position. Digital rectal exam was performed and revealed no masses. Next the O? R theresa band ligation apparatus was introduced per rectum, and the right posterior and right anterior column of hemorrhoid s was band ligated. Repeat digital rectal exam was performed and the band ligator was noted to be in good position. The patient tolerated the procedure well. There were no immediate complicati ons. The patient was advised to call immediatel y if any problems following the procedure, including- but not limited to-pain, fever, or bleeding. Perianal dermatitis 6657 30903 L30.9 culture showed strep. He will complete augmentin [id number] RUDY NAVARRO MD [facility] PCP [address] [facility] [place] [place] [address] 11/09/2023 14:52:22 11/09/2023 17:20:06 Essential hypertension 46616604 I10 Stable Hyperlipidemia 01471148 E78.5 On pravastati n LDL according to recent blood work from [facility] around 90 the patient would prefer to wait on the until seen by his primary care physician in order to decide about increase of the dose of pravastati n, Patient recommende d a target of 70 History of malignant neoplasm of bladder 817542432 Z85.51 And North Followed by urologist every year with cystoscopy In February cancer detected in 2018 History of malignant neoplasm of skin 509271477 Z85.828 Seen by dermatolog ist twice a year and [place] Screening for malignant neoplasm of colon 277707245 Z12.11 No oldPatient mention colonoscop y 2 years ago he mentioned that he will need probably another one next year Benign pro static hyperplasia 479647849 N40.0 After patient PSAs and North by his primary care physician he would prefer to do it there Upper resp iratory infection 62683865 J06.9 pt finisshed today Z pack refused further Antibiotic possible PNA,offere d Radhauin will wait for CXR result ,Szx are suggestive of Upper resp infection such as sinusitis but possible Lung findings Influenza caused by Influenza A virus 760503589 J09.X2 Health Concerns Section Related Observation LastModified by Organization Detai ls LastModified Time None Recorded Concern Status LastModified by Organization Details LastModified Time None Recorded Advance Directives Directive Y: Payers Insurance Date Sequence Insurance Name Policy Number Policy Meade Covered Member ID Meade Member ID Guarantor Name 03/08/2025 2 [place] [id number] Ranjan Ferris [id number] Ranjan Ferris 03/16/2025 1 [place] Ranjan Ferris [id number] Ranjan Ferris Notes Date Note Type Note Provider Name and Address Organization Details Recorded Time 12/17/2021 text/html Very pleasant 81-year-old male who came to this office for the first time to get established. The patient comes to [place] every season around 4 months he is lives in [place] The patient have a history of bladder cancer with cystoscopy every year since 2019 that the tumor was removed from the bladder no real no relapses, Last endoscopy in February 2021 - next cystoscopy February 2022, History of atrial fibrillation more than 30 years ago no relapses without the specific treatment. History of obstructive sleep apnea unfortunately without using CPAP the patient will require referral and evaluation by a sleep medicine he decided to wait until he goes back to [place] to see his cut out operator History of prediabetes hemoglobin A1c recently 5.9. 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 the patient presented an episode of near syncope with sweating he went to ER and [facility] as per patient stress test was negative also negative for normal echocardiograms he was seen by rivet tester and a Holter was given to the patient for 2 weeks the patient will be seen by Dr. Estrada electrophysiology rivet tester next week Blood work from hospital reviewed today, Other tests including echo and stress test results are not available hemoglobin is normal renal function was normal above 86 in addition liver function tests were normal correlation test normal troponin normal BNP was normal. The patient denies chest pain shortness of breath palpitation at this time RUDY NAVARRO MD [address] [place] [address], [phone], [facility] [place] 12/17/2021 10:35:27 11/05/2022 text/html This is an 82-ye ar-old male who presents to the practice today with worsening hemorrhoids and perennial irritation. States he has long history of internal and external hemorrhoids. States its been worse for weeks. Reports pain, itching, burning, and mild bleeding. Denies anything else new or different today. ALVARADO BOUCHER APRN [address] [place], [address], [facility] [place] 11/05/2022 13:10:40 11/09/2022 text/html Patient presents for first hemorrhoid banding. MALDONADO GOODWIN [address] [place], [address], [facility] [place] 11/09/2022 09:19:14 11/23/2022 text/html Patient presents for second hemorrhoid banding. MALDONADO GOODWIN [address] [place], [address], [facility] [place] 11/23/2022 13:35:36 11/09/2023 text/html Very pleasant 81-year-old male who came to this office for the first time to get established. The patient comes to [place] every season around 4 months he is lives in [place] The patient have a history of bladder cancer with cystoscopy every year since 2019 that the tumor was removed from the bladder no real no relapses, Last endoscopy in February 2021 - next cystoscopy February 2022, History of atrial fibrillation more than 30 years ago no relapses without the specific treatment. History of obstructive sleep apnea unfortunately without using CPAP the patient will require referral and evaluation by a sleep medicine he decided to wait until he goes back to [place] to see his cut out operator History of prediabetes hemoglobin A1c recently 5.9. 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 the patient presented an episode of near syncope with sweating he went to ER and [facility] as per patient stress test was negative also negative for normal echocardiograms he was seen by rivet tester and a Holter was given to the patient for 2 weeks the patient will be seen by Dr. Etsrada electrophysiology rivet tester next week Blood work from hospital reviewed today, Other tests including echo and stress test results are not available hemoglobin is normal renal function was normal above 86 in addition liver function tests were normal correlation test normal troponin normal BNP was normal. The patient denies chest pain shortness of breath palpitation at this time RUDY NAVARRO MD [facility], [place], [address], [place] - [facility] [place] 11/09/2023 16:51:49
== END 2025-03-26 11:58 | disposition home or self-care (01) ==
LOC: HO.HKAS 10:44
PROVIDERS: PCP Internal Medicine; Visit Provider Internal Medicine Nephrology
DX: I12.9 Hypertensive chronic kidney disease with stage 1 through stage 4 chronic kidney disease, or unspecified chronic kidney disease (principal); N18.2 Chronic kidney disease, stage 2 (mild); R80.8 Other proteinuria
CPT/HCPCS: 99214

== ENCOUNTER → 2025-03-26 10:44 | Outpatient (BNVA) | payer MEDICARE, SELFPAY | PROVIDERS: PCP Internal Medicine; Visit Provider Internal Medicine Nephrology | DX: I12.9 Hypertensive chronic kidney disease with stage 1 through stage 4 chronic kidney disease, or unspecified chronic kidney disease (principal); N18.2 Chronic kidney disease, stage 2 (mild); R80.8 Other proteinuria | CPT/HCPCS: 99212 ==